=== PATIENT | female | born 2000 | race African-American/Black ===

== ENCOUNTER 2019-03-25 16:48 | Inpatient (IN) ==
[2019-03-25] MEDS ORDERED: ePHEDrine 50 MG/ML AMP IV PRN (17:11)
[2019-03-25] MEDS ORDERED: hydrOXYzine HCL 25 MG/1 ML VIAL IM PRN (17:11)
[2019-03-25] MEDS ORDERED: diphenhydrAMINE 50 MG/1 ML VIAL IV PRN ×2 (17:11→17:30)
[2019-03-25] MEDS ORDERED: BUPIVACAINE SPINAL 0.75% 2 ML AMP SPINAL ONE (17:15)
[2019-03-25 17:27] LABS: Basophils % 0.3 % (0.0-0.8); Eosinophils # 0.1 10*3/uL (0.0-0.87); Hematocrit 35.5 VOL% (35.7-47.0); Hemoglobin 11.2 GM/DL (12.0-16.0); Immature Granulocytes % 0.3 %; Immature Granulocytes Absolute 0.03 #; Lymphocytes # 1.2 10*3/uL (1.4-4.0); Lymphocytes % 12.3 % (21.3-54.2); Mean Corpuscular HGB Conc 31.5 GM/DL (32-36); Mean Corpuscular Volume 89.2 FL (87-102); Mean Platelet Volume 11.3 FL (9.6-12.0); Monocytes % 5.9 % (1.7-12.7); Neutrophils % 80.2 % (38.7-73.9); Platelet Count 223 T/CUMM (130-400); Red Blood Count 3.98 MC/CUMM (3.8-5.5); Red Cell Distribution Width 13.4 % (9.3-17.3); White Blood Count 9.6 T/CUMM (4-12)
[2019-03-25] MEDS ORDERED: AMPICILLIN INJ 2,000 MG in SODIUM CHLORIDE 0.9% 100 ML IV ONE (17:30)
[2019-03-25] MEDS ORDERED: FAMOTIDINE 20 MG/2 ML VIAL IV ONE (17:30)
[2019-03-25] MEDS ORDERED: CITRIC ACID/SODIUM CITRATE 30 ML UDCUP PO ONE (17:30)
[2019-03-25] MEDS ORDERED: ONDANSETRON 4 MG/2 ML VIAL IV ONE (17:30)
[2019-03-25] MEDS ORDERED: PROMETHAZINE 25 MG/1 ML VIAL IM ONE (17:30)
[2019-03-25] MEDS: LACTATED RINGERS 1,000 ML IV SCH ×2 (17:34→17:35)
[2019-03-25 17:52] LABS: Albumin 3.2 G/DL (3.4-5.0); Bilirubin,Total 0.4 MG/DL (0.2-1.0); Osmolality,Calculated 274.5 MOS/KG (273-304); Total Protein 7.2 G/DL (6.4-8.3)
[2019-03-25 19:17] VITALS: BP 114/75
[2019-03-25] MEDS ORDERED: NIFEdipine 10 MG CAPSULE PO ONE (19:27)
[2019-03-25] MEDS: ACETAMINOPHEN 325 MG TABLET PO PRN (20:03)
[2019-03-25] MEDS: AMPICILLIN INJ 1,000 MG in SODIUM CHLORIDE 0.9% 100 ML IV SCH (21:06)
[2019-03-26] MEDS: NIFEdipine 10 MG CAPSULE PO SCH ×5 (00:12→23:41)
[2019-03-26] MEDS: LACTATED RINGERS 1,000 ML IV SCH (00:12)
[2019-03-26] MEDS: AMPICILLIN INJ 1,000 MG in SODIUM CHLORIDE 0.9% 100 ML IV SCH ×6 (01:45→21:01)
[2019-03-26] MEDS ORDERED: ERYTHROMYCIN INJ 500 MG in SODIUM CHLORIDE 0.9% 100 ML IV SCH (07:30)
[2019-03-26] MEDS: ACETAMINOPHEN 325 MG TABLET PO PRN ×2 (09:35→14:33)
[2019-03-26] MEDS: ERYTHROMYCIN BASE 250 MG TABLET PO SCH ×3 (11:00→22:54)
[2019-03-26] MEDS ORDERED: NIFEdipine 10 MG CAPSULE PO SCH (19:00)
[2019-03-27] MEDS: AMPICILLIN INJ 1,000 MG in SODIUM CHLORIDE 0.9% 100 ML IV SCH ×3 (01:07→12:05)
[2019-03-27] MEDS: ERYTHROMYCIN BASE 250 MG TABLET PO SCH (05:31)
[2019-03-27] MEDS: NIFEdipine 10 MG CAPSULE PO SCH ×2 (05:32→12:35)
[2019-03-27] MEDS: ACETAMINOPHEN 325 MG TABLET PO PRN (12:03)
[2019-03-27] MEDS ORDERED: AMPICILLIN 500 MG CAPSULE PO SCH (13:00)
== END 2019-03-27 12:49 | disposition home or self-care (01) | DRG 546 ==
LOC: N.LDOUT 16:48 → N.LD 16:49
PROVIDERS: ADMIT Obstetrics & Gynecology; ATTEND Obstetrics & Gynecology